=== PATIENT | female | born 1990 | race Caucasian/White ===

== ENCOUNTER 2017-10-28 21:51 | Inpatient (IN) | payer OTHER ==
[~2017-10-28] VITALS: Ht 162.6 cm; Wt 90.9 kg
[2017-10-28] VITALS (7 sets, daily range): BP systolic 94–151; BP diastolic 51–105; PULSE 96–122
[~2017-10-28 21:51] MED LIST: COLACE 100100 MG/CAP PO; IBU600 MG PO; PERCOCET 325 MG1 TA2 PO; PRENATAL1 TA7 PO; TUMS500 MG
[2017-10-28 22:24] LABS: BASO % 0.2 % (0.0-2.0); EOS # 0.1 (0.0-0.7); EOS % 0.8 % (0-4.0); GRAN # 5.6 (1.4-6.5); GRAN % 56.1 % (42.2-75.2); HEMOGLOBIN 12.3 g/dl (12.5-16.0); LYMPH # 3.4 (1.2-3.4); LYMPH % 33.7 % (20.0-51.0); MEAN CELL VOLUME 92 fl (80.0-100.0); MEAN CORPUSCULAR HEMOGLOBIN 31 pg (27.0-31.0); MEAN CORPUSCULAR HGB CONC 34 g/dl (33.0-37.0); MEAN PLATELET VOLUME 10.7 fl (7.4-10.4); MONO # 0.9 (0.1-0.6); MONO % 8.7 % (1.7-9.3); PLATELET COUNT 173 K/mm3 (130-400); RED BLOOD COUNT 3.93 M/mm3 (4.10-5.30); REDCELL DISTRIBUTION WIDTH-CV 12.7 % (11.5-14.5)
[2017-10-28 22:25] LABS: HEMATOCRIT 36.2 % (37.0-47.0)
[2017-10-29] VITALS (11 sets, daily range): BP systolic 105–123; BP diastolic 58–76; PULSE 73–102; TEMP 97.6–97.9
[2017-10-30 08:00] VITALS: BP 120/62; PULSE 68; TEMP 97.2
[2017-10-30] MEDS ORDERED: PERCOCET 325 MG1 TA2 PO (09:41)
[2017-10-30] MEDS ORDERED: IBU600 MG PO (09:41)
== END 2017-10-30 12:00 | disposition home or self-care (01) | DRG 775 ==
LOC: LDRO 21:51 → LDR 22:06 → OB 10-29 02:20
PROVIDERS: Obstetrics & Gynecology
PROC: 10E0XZZ Delivery of Products of Conception, External Approach (ICD-10-PCS; principal; 2017-10-28)
PROC: 0TQDXZZ Repair Urethra, External Approach (ICD-10-PCS; 2017-10-28)
PROC: 0HQ9XZZ Repair Perineum Skin, External Approach (ICD-10-PCS; 2017-10-28)
DX: O70.0 First degree perineal laceration during delivery (principal); Z37.0 Single live birth; O71.5 Other obstetric injury to pelvic organs; Z3A.37 37 weeks gestation of pregnancy
CPT/HCPCS: J2210; J2590; J7120

== ENCOUNTER → 2022-04-09 | Outpatient (CLI) | payer OTHER ==
[~2022-04-09] MED LIST changes: +PROTONIX 40MG T40 MG PO
--- NOTE | 2022-04-09 14:19 | NUR ---
Pt, Nasrin Herbert, presents for outpatient consult with 6 week old baby boy, Wilton Herbert. She requested a consult because she continues to have nipple pain despite Wilton being older. Wilton was born on [birth year] and weighed 7# 14.3 (3580 gms). He is Nasrin's third baby and she has nursed the others as well. Today Wilton weighs 9# 4.9oz (4222 gms). He initially had to use a nipple shield, he now latches but is causing blanching of the nipple and pt has nipple pain for a while after he is done nursing. Some feedings are EBM by bottle because of the pain. Pt also has an abundant supply of milk which may be contributing latch difficulty. At this feeding Wilton is eager to latch but does not open his mouth widely, causing a shallow latch. Pt is advised on support, alignment and catching Wilton's chin to get it open wider for a deeper latch. After a few tries on each side Wilton gets latched more comfortable. After Wilton has a weight gain of 4.9oz (136 gms). Pt has blanching of the nipples, LC presents concept of Reynauds Syndrome and suggests placing warm compresses to nipples after unlatching Wilton. Pt states she will work on position and latching manuevers practiced here, as well as the warm compresses. Follow up as needed with LC, as scheduled with doctors. Questions invited and answered.
== END ==
LOC: LAC 04-06 06:06
DX: Z39.1 Encounter for care and examination of lactating mother (principal)

== ENCOUNTER 2023-10-24 18:40 | Outpatient (CLI) | payer OTHER ==
[~2023-10-24] VITALS: Ht 165.1 cm; Wt 103.6 kg
[~2023-10-24 18:40] MED LIST changes: +AMOXICILLIN 8751 TAB PO
[2023-10-24] MEDS ORDERED: LR 1,000 ML IV PRN (19:00)
--- NOTE | 2023-10-24 19:15 | NUR ---
Pt arrives via wheelchair, accompanied by staff. Instructed to change into gown. RN at the bedside, discussing hx and symptoms. Pt reports that she has been having some left leg pain and swelling for the last 2-3 days. The pain is behind her left knee and this RN palpates the area for any lumps. Pt reports when the area is palpated deeply the pain is worse. She also tells this RN that she has pain on the outer side of her calf that is fairly constant and when this RN touches her calf, she reports it causing pain. RN does not observe any pitting edema, redness, warmth, swelling to the left leg at this time. Pt reports when she notified the Dr via the portal messaging system, they told her to come in. She is a G4 L3 pt of Dr Snider's, 34. 3 weeks. She is placed on the monitors at this time as well.
[2023-10-24 19:30] VITALS: BP 118/70; PULSE 97; TEMP 98.1
[2023-10-24 20:00] VITALS: BP 119/70; PULSE 94
[2023-10-24] MEDS ORDERED: LEXAPRO20 MG PO (21:10)
== END 2023-10-24 20:10 | disposition home or self-care (01) ==
LOC: LDRO 18:40
DX: O99.891 Other specified diseases and conditions complicating pregnancy (principal); M79.605 Pain in left leg; Z3A.34 34 weeks gestation of pregnancy

== ENCOUNTER 2023-11-28 10:46 | Inpatient (IN) | payer OTHER ==
[2023-11-28] VITALS (25 sets, daily range): BP systolic 93–140; BP diastolic 50–85; PULSE 85–105; TEMP 97.8–98.4
[~2023-11-28] VITALS: Ht 162.6 cm; Wt 106.8 kg
[~2023-11-28 10:46] MED LIST changes: +LEXAPRO20 MG PO
--- NOTE | 2023-11-28 11:33 | NUR ---
1100 PATIENT HERE FOR COMPLAINTS OF CRAMPING FOR 2 DAYS.NO LEAKING FLUID, OR BLEEDING. EFM ON FHT 160 BABY VERY ACTIVE. OCCASIONAL CONTRACTIONS NOTED. PALPATE MILD. PATIENT ABLE TO WALK AND TALK THROUGH THEM. SVE /-3 NO FLUID, OR NO SHOW ON GLOVE. FULL ASSESSMENT COMPLETED. AND FRIEND AT BEDSIDE.
--- NOTE | 2023-11-28 11:44 | NUR ---
1145 PATIENT CONTRACTIONS IRREGULAR AND PALPATE MILD. FHT 180 VERY ACTIVE.
[2023-11-28] MEDS ORDERED: LR 1,000 ML IV PRN (12:00)
[2023-11-28] MEDS ORDERED: Ondansetron 4 MG/2 ML VIAL IV ONE (12:15)
[2023-11-28] MEDS ORDERED: LR 1,000 ML IV SCH (12:15)
[2023-11-28] MEDS ORDERED: ceFAZolin 2 G in Water For Injection,Sterile 20 ML IV ONE (12:15)
[2023-11-28] MEDS ORDERED: LR & Oxytocin 500 ML IV SCH (12:15)
[2023-11-28 12:40] LABS: BASO % 0.4 % (0.0-2.0); EOS # 0.1 K/mm3 (0.0-0.7); EOS % 1.5 % (0.0-4.0); GRAN # 5.4 K/mm3 (1.4-6.5); GRAN % 69.2 % (42.2-75.2); HEMOGLOBIN 12.1 g/dl (12.5-16.0); LYMPH # 1.6 K/mm3 (1.2-3.4); LYMPH % 20.3 % (20.0-51.0); MEAN CELL VOLUME 90 fl (80.0-100.0); MEAN CORPUSCULAR HEMOGLOBIN 30 pg (27-31); MEAN CORPUSCULAR HGB CONC 33 g/dl (33.0-37.0); MEAN PLATELET VOLUME 10.7 fl (7.4-10.4); MONO # 0.6 K/mm3 (0.1-0.6); PLATELET COUNT 177 K/mm3 (130-400); RED BLOOD COUNT 4.06 M/mm3 (4.10-5.30); REDCELL DISTRIBUTION WIDTH-CV 13.2 % (11.5-14.5)
[2023-11-28 12:43] LABS: HEMATOCRIT 36.6 % (37.0-47.0)
--- NOTE | 2023-11-28 12:45 | NUR ---
1200 DR SOTO AT BEDSIDE TO TALK WITH PATIENT. STRIP EVALUATION DONE BY DR SOTO. ORDERS GIVEN TO ADMIT FOR LABOR. IV STARTED IN LEFT HAND IVF LR STARTED. SVE /-3 AROM WITH AMNIOHOOK, CLEAR FLUID, NO ODOR NOTED. ZOFRAN 4 MG IV PER PATIENT REQUEST AND DR ORDER. ANCEF GIVEN PER ODERS PER NURSE.
--- NOTE | 2023-11-28 13:12 | NUR ---
MARLIN JIM AT BEDSIDE FOR EPIDURAL PLACEMENT. MATERNAL VITAL SIGNS STABLE. EFM TRACING CATEGORY 1. PT REPORTS INCREASED PAIN WITH CONTRACTIONS. LEAKING LARGE AMOUNTS OF CLEAR AMNIOTIC FLUID. 1312: SINGLE SHOT PER HERN[facility]N ISAAC. LR BOLUS INFUSING. MATERNAL VITAL SIGNS STABLE. PT TOLERATED PROCEDURE WELL.
[2023-11-28] MEDS ORDERED: ROPivacaine PF 0.2% 200 ML IV ONE (13:20)
[2023-11-28] MEDS ORDERED: diphenhydrAMINE 50 MG/ML 1 ML VIAL IV PRN (13:30)
[2023-11-28] MEDS ORDERED: Ondansetron 4 MG/2 ML VIAL IV PRN (13:30)
[2023-11-28] MEDS ORDERED: diphenhydrAMINE 25 MG CAP PO PRN (13:30)
[2023-11-28] MEDS ORDERED: Naloxone 0.4 MG/ML VIAL IV PRN ×2 (13:30→16:15)
[2023-11-28] MEDS ORDERED: ePHEDrine 50 MG/10 ML VIAL IV PRN (13:30)
--- NOTE | 2023-11-28 13:55 | NUR ---
STORY PLACED, CLEAR YELLOW URINE RETURN. SVE 5-6/80/-2.
--- NOTE | 2023-11-28 14:50 | NUR ---
PER DR.WEBER MARCELO, TURN PITOCIN OFF AT THIS TIME. PT NOTIFIED AND AGREEABLE TO POC.
[2023-11-28] MEDS ORDERED: Acetaminophen 500 MG TAB PO PRN (16:15)
[2023-11-28] MEDS ORDERED: Witch Hazel 50% Pads Bulk TUB TP PRN (16:15)
[2023-11-28] MEDS ORDERED: Mag/Al Hydrox/Simeth Susp 30 ML CUP PO PRN (16:15)
[2023-11-28] MEDS ORDERED: Magnes Hydrox (MOM) 80 MG/ML 30 ML CUP PO PRN (16:15)
[2023-11-28] MEDS ORDERED: Ibuprofen 800 MG TAB PO SCH (16:15)
[2023-11-28] MEDS ORDERED: Phenylephrine/Mineral Oil/Petrolatum 57 GM TUBE RC PRN (16:15)
[2023-11-28] MEDS ORDERED: Loratadine 10 MG TAB PO PRN (16:15)
[2023-11-28] MEDS ORDERED: Measles/Mumps/Rubella Virus Vaccine Live w Diluent 0.5 ML VIAL SQ SCH (16:15)
--- NOTE | 2023-11-28 16:21 | NUR ---
1618: AT BEDSIDE, PT COMPLAINING OF PRESSURE AND URGE TO PUSH. SVE COMPLETE/+1. ALL APPROPRIATE STAFF NOTIFIED. PREPARES FOR DELIVERY. 1621: SVE OF VIABLE FEMALE INFANT PER DR SOTO AT THIS TIME. NUCHAL CORD X3 REDUCED AT DELIVERY. PLACED ON MATERNAL ABDOMEN, CARE OF ASSUMED BY ESTEFANY LEONARD RN. UPON PULSATION OF CORD, CORD CLAMPED X2 AND CUT BY FOB. LOCHIA WNL AT THIS TIME. MATERNAL VITAL SIGNS STABLE. 1623: SVE OF INTACT PLACENTA PER . PITOCIN BOLUS INFUSING PER PROTOCOL. PERINEUM REMAINS INTACT. MATERNAL VITAL SIGNS STABLE. LOCHIA WNL. FUNDUS FIRM AT UMBILICUS WITH MASSAGE. WILL CONTINUE WITH CARES PER PROTOCOL.
[2023-11-28] MEDS ORDERED: Sennosides/Docusate 8.6-50 MG TAB PO SCH (17:00)
[2023-11-28] MEDS ORDERED: MOTRIN 800800 MG/TAB PO (17:52)
[2023-11-28] MEDS ORDERED: ceFAZolin 2 G in Water For Injection,Sterile 20 ML IV SCH (20:03)
[2023-11-28] MEDS ORDERED: traZODone 50 MG TAB PO PRN (21:00)
[2023-11-29 03:00] VITALS: BP 115/70; PULSE 86; TEMP 98
[2023-11-29] MEDS ORDERED: oxyCODONE 5 MG TAB PO PRN (03:15)
[2023-11-29 08:45] VITALS: BP 111/84; PULSE 88; TEMP 98.4
[2023-11-29] MEDS ORDERED: Escitalopram 10 MG TAB PO SCH (09:00)
[2023-11-29] MEDS ORDERED: Citalopram 20 MG TAB PO SCH (09:00)
[2023-11-29] MEDS ORDERED: PERCOCET 325 MG1 TA2 PO (13:29)
== END 2023-11-29 18:05 | disposition home or self-care (01) | DRG 560 ==
LOC: LDRO 10:46 → OB 12:51 → LDR 12:51 → OB 12:51
PROVIDERS: ADMIT Obstetrics & Gynecology
PROC: 10E0XZZ Delivery of Products of Conception, External Approach (ICD-10-PCS; principal; 2023-11-28)
DX: O99.824 Streptococcus B carrier state complicating childbirth (principal); Z37.0 Single live birth; O76 Abnormality in fetal heart rate and rhythm complicating labor and delivery; O99.344 Other mental disorders complicating childbirth; F41.9 Anxiety disorder, unspecified; O99.214 Obesity complicating childbirth; O69.81X0 Labor and delivery complicated by cord around neck, without compression, not applicable or unspecified; Z3A.39 39 weeks gestation of pregnancy
CPT/HCPCS: J0688; J2405; J2590; J2795; J7120